=== PATIENT | male | born 1945 | race Caucasian/White ===

== ENCOUNTER 2018-08-29 22:57 | Inpatient (IN) | payer MEDICARE, OTHER ==
[~2018-08-29] VITALS: Ht 177.8 cm; Wt 68.0 kg
[2018-08-29] MEDS ORDERED: QUET25TA PO (23:42)
[2018-08-29] MEDS ORDERED: LISI-603 PO (23:42)
[2018-08-29] MEDS ORDERED: MAGN400O6 PO (23:42)
[2018-08-29] MEDS ORDERED: PANT40TA2 PO (23:42)
[2018-08-29] MEDS ORDERED: ZOFRAN (23:42)
[2018-08-29] MEDS ORDERED: ACET325C5 PO (23:42)
[2018-08-29] MEDS ORDERED: ALPR0.5T8 PO (23:42)
[2018-08-29] MEDS ORDERED: CARB-93 PO (23:42)
[2018-08-29] MEDS ORDERED: ATEN25TA PO (23:42)
[2018-08-29] MEDS ORDERED: OLAN2.5T3 PO (23:42)
[2018-08-30] MEDS ORDERED: MAGNESIUM HYDROXIDE 30 ML LIQUID UDC PO SCH (00:15)
--- NOTE | 2018-08-30 01:00 | NUR ---
AT APPROX 0015 ADMITTED 73 YEAR OLD MALE FOR[facility] TO [facility] MHU ON A 5150 FOR GD. PATIENT WAS FIRST ADMITTED TO [facility] FOR AMS, ONCE MEDICALLY CLEARED, HE WAS TRANSFERRED TO [facility] ER FOR ADMISSION TO MHU. PER 5150 HOLD, PATIENT HAS BEEN ACTING SEXUALLY INAPPROPRIATELY TOWARD OTHERS, ATTEMPTING TO WALK WITHOUT ASSISTANCE LEADING TO MULTIPLE FALLS, ATTEMPTING TO ELOPE, AGGRESSIVE AND COMBATIVE, UNABLE TO BE REDIRECTED. HOLD STARTED ON 08/29/18 AT 2100 AND WILL END ON 09/01/18 AT 2100. UPON ADMISSION PATIENT NOTED A/O X1, CONFUSED, DISORIENTED, UNABLE TO ANSWER ANY QUESTION. SKIN ASSESSMENT, FEW BRUISES NOTED IN LEFT FLANK, UPPER LEFT ARM, RIGHT MID ARM, ABRASIONS NOTED IN BOTH KNEES AND LOWER LEGS. FADED PINK RASH NOTED IN UPPER CHEST. PATIENT WAS DIRECTED TO HIS ROOM AND BED. HE IS NOTED CALM AT THIS TIME. PT IS UNDER THE CARE OF DR CASTAÑEDA. WILL CONTINUE TO MONITOR.
[2018-08-30] MEDS ORDERED: MAG HYDROX/AL HYDROX/SIMETH 30 ML LIQUID UDC PO PRN (01:30)
[2018-08-30] MEDS ORDERED: MAGNESIUM HYDROXIDE 30 ML LIQUID UDC PO PRN (01:30)
[2018-08-30] MEDS ORDERED: ZOLPIDEM 5 MG TABLET PO PRN (01:30)
[2018-08-30] MEDS ORDERED: ACETAMINOPHEN 325 MG TABLET PO PRN (01:30)
[2018-08-30 07:30] VITALS: BP 178/101
[2018-08-30] MEDS: LISINOPRIL 20 MG TABLET PO SCH ×2 (09:14→17:00)
[2018-08-30] MEDS: PANTOPRAZOLE SODIUM 40 MG TABLET.DR PO SCH (09:15)
[2018-08-30] MEDS: ATENOLOL 25 MG TABLET PO SCH (09:15)
[2018-08-30] MEDS: CARBIDOPA/LEVODOPA 25-100MG TABLET PO SCH ×2 (09:15→17:00)
[2018-08-30 16:00] VITALS: BP 98/56
[2018-08-30] MEDS: QUETIAPINE FUMARATE 25 MG TABLET PO SCH (17:00)
[2018-08-30 20:29] VITALS: BP 160/71
[2018-08-30] MEDS ORDERED: QUETIAPINE FUMARATE 25 MG TABLET PO SCH (21:00)
[2018-08-31] MEDS: LORAZEPAM 1 MG TABLET PO PRN ×2 (03:49→22:50)
[2018-08-31 07:30] VITALS: BP 126/70
[2018-08-31 08:01] LABS: ALANINE AMINOTRANSFERASE 8 U/L (16-63); ALKALINE PHOSPHATASE 65 U/L (50-136); ASPARTATE AMINOTRANSFERASE 10 U/L (15-37); BILIRUBIN,TOTAL 0.5 mg/dL (0.2-1.0); CARBON DIOXIDE 24 mmol/L (21-32); CHLORIDE 108 mmol/L (98-107); CREATININE 2.4 mg/dL (0.6-1.3); GLUCOSE 103 mg/dL (74-106); POTASSIUM 3.8 mmol/L (3.5-5.1); TOTAL PROTEIN, SERUM 7.2 g/dL (6.4-8.2); UREA NITROGEN, BLOOD 25 mg/dL (7-18)
[2018-08-31] MEDS: PANTOPRAZOLE SODIUM 40 MG TABLET.DR PO SCH (09:15)
[2018-08-31] MEDS: QUETIAPINE FUMARATE 25 MG TABLET PO SCH ×2 (09:15→17:29)
[2018-08-31] MEDS: CARBIDOPA/LEVODOPA 25-100MG TABLET PO SCH ×2 (09:15→17:29)
[2018-08-31] MEDS: LISINOPRIL 20 MG TABLET PO SCH ×2 (09:16→17:29)
[2018-08-31] MEDS: ATENOLOL 25 MG TABLET PO SCH (09:16)
--- NOTE | 2018-08-31 12:10 | NUR ---
Initial Discharge Plan: Patient is a 73 year old male who was previously living at home and then multiple SNFs and board & care's. Patient does not currently have stable placement and is unable to return to living independently. Patient will need new SNF placement. transmission worker has spoken with patient friend, Yannick Damon [ ], who is agreeable with patient going to a SNF. transmission worker will continue to collaborate with patient, patient friend, and MD on a safe and proper discharge.
[2018-08-31 16:00] VITALS: BP 129/77
[2018-08-31 20:23] VITALS: BP 149/80
[2018-08-31] MEDS ORDERED: QUETIAPINE FUMARATE 25 MG TABLET PO SCH (21:00)
[2018-08-31] MEDS: QUETIAPINE FUMARATE 100 MG TABLET PO SCH (21:02)
[2018-09-01] MEDS: LORAZEPAM 1 MG TABLET PO PRN ×4 (05:05→21:17)
[2018-09-01 07:30] VITALS: BP 96/47
[2018-09-01] MEDS: LISINOPRIL 20 MG TABLET PO SCH (09:00)
[2018-09-01] MEDS: ATENOLOL 25 MG TABLET PO SCH (09:00)
[2018-09-01] MEDS: PANTOPRAZOLE SODIUM 40 MG TABLET.DR PO SCH (09:01)
[2018-09-01] MEDS: QUETIAPINE FUMARATE 25 MG TABLET PO SCH ×2 (09:01→17:12)
[2018-09-01] MEDS: CARBIDOPA/LEVODOPA 25-100MG TABLET PO SCH ×2 (09:20→17:12)
[2018-09-01 15:25] VITALS: BP 131/76
--- NOTE | 2018-09-01 17:46 | NUR ---
GPS: RECEIVED PATIENT ON HIS GERICHAIR, ASLEEP, NO SIGN OF ANY DISTRESS, PATIENT CONFUSED AND DISORIENTED, ABLE TO EAT HIS MEAL WITH ASSISTANCE, PATIENT IS TOTAL CARE, WILL CONTINUE MONITOR
--- NOTE | 2018-09-01 20:10 | NUR ---
GPS: PATIENT CONFUSED AND DISORIENTED. ATTEMPT TO HIT STAFF. GETING OUT OF BED. AGRESSIVE BEHAVIOR. ATIVAN 1 MG PO PRN GIVEN.
--- NOTE | 2018-09-01 21:10 | NUR ---
GPS: PATIENT IS CALM NOW. PRN EFFECTIVE.
[2018-09-01] MEDS: QUETIAPINE FUMARATE 100 MG TABLET PO SCH (21:18)
[2018-09-01 21:50] VITALS: BP 113/68
--- NOTE | 2018-09-02 06:40 | NUR ---
GPS: Remain uncooperative with care.confused and disoriented. assisted with shower. slept 4:5 hrs through the night. resting in bed comfortably. continue plan of care.
[2018-09-02 07:30] VITALS: BP 108/58
[2018-09-02 07:48] LABS: BASOPHILS % (AUTO) 0.7 % (0.0-2.0); EOSINOPHILS # (AUTO) 0.2 K/uL (0.0-0.7); EOSINOPHILS % (AUTO) 2.5 % (0.0-7.0); HEMATOCRIT 43.4 % (36.7-47.1); HEMOGLOBIN 14.5 g/dL (12.5-16.3); LYMPHOCYTES # (AUTO) 0.7 K/uL (20.0-40.0); LYMPHOCYTES % (AUTO) 10.8 % (20.5-51.5); MEAN CORPUSCULAR HEMOGLOBIN 29.4 uug (23.8-33.4); MEAN CORPUSCULAR HGB CONC 33 g/dL (32.5-36.3); MEAN CORPUSCULAR VOLUME 88.2 fL (73.0-96.2); MONOCYTES # (AUTO) 0.5 K/uL (2.0-10.0); MONOCYTES % (AUTO) 8.1 % (0.0-11.0); NEUTROPHILS # (AUTO) 5.1 K/uL (1.8-8.9); NEUTROPHILS % (AUTO) 77.9 % (38.5-71.5); PLATELET COUNT (AUTO) 155 K/uL (152-348); RED BLOOD CELL COUNT(AUTO) 4.92 MIL/uL (4.06-5.63); WHITE BLOOD COUNT (AUTO) 6.6 K/uL (3.6-10.2)
[2018-09-02 08:18] LABS: THYROID STIMULATING HORMONE 0.551 mIU/mL (0.358-3.740)
[2018-09-02] MEDS: PANTOPRAZOLE SODIUM 40 MG TABLET.DR PO SCH (08:47)
[2018-09-02] MEDS: CARBIDOPA/LEVODOPA 25-100MG TABLET PO SCH ×2 (08:47→18:25)
[2018-09-02] MEDS: QUETIAPINE FUMARATE 25 MG TABLET PO SCH ×2 (08:48→18:25)
[2018-09-02] MEDS: LISINOPRIL 20 MG TABLET PO SCH (08:50)
[2018-09-02] MEDS: ATENOLOL 25 MG TABLET PO SCH (08:51)
[2018-09-02 08:55] LABS: ALANINE AMINOTRANSFERASE 14 U/L (16-63); ALKALINE PHOSPHATASE 70 U/L (50-136); ASPARTATE AMINOTRANSFERASE 14 U/L (15-37); CARBON DIOXIDE 28 mmol/L (21-32); CHLORIDE 107 mmol/L (98-107); CREATINE KINASE, TOTAL 101 U/L (39-308); CREATININE 1.2 mg/dL (0.6-1.3); GLUCOSE 88 mg/dL (74-106); MAGNESIUM 1.8 mg/dL (1.8-2.4); PHOSPHOROUS 2.7 mg/dL (2.5-4.9); POTASSIUM 3.7 mmol/L (3.5-5.1); TOTAL PROTEIN, SERUM 7.6 g/dL (6.4-8.2); UREA NITROGEN, BLOOD 38 mg/dL (7-18)
[2018-09-02 09:08] LABS: BILIRUBIN,TOTAL 0.6 mg/dL (0.2-1.0)
[2018-09-02 16:00] VITALS: BP 156/72
[2018-09-02 20:15] VITALS: BP_SYST 129; BP_SYST 97; BP_DIAS 66; BP_DIAS 76
[2018-09-02] MEDS: QUETIAPINE FUMARATE 100 MG TABLET PO SCH (20:41)
[2018-09-02] MEDS: Z GUARD REMEDY PASTE 57 GM TUBE TOP SCH (22:34)
[2018-09-03 07:30] VITALS: BP 136/82
[2018-09-03] MEDS: PANTOPRAZOLE SODIUM 40 MG TABLET.DR PO SCH (08:29)
[2018-09-03] MEDS: CARBIDOPA/LEVODOPA 25-100MG TABLET PO SCH ×2 (08:29→18:01)
[2018-09-03] MEDS: QUETIAPINE FUMARATE 25 MG TABLET PO SCH ×3 (08:29→18:01)
[2018-09-03] MEDS: ATENOLOL 25 MG TABLET PO SCH (08:29)
[2018-09-03] MEDS: LISINOPRIL 20 MG TABLET PO SCH (08:29)
[2018-09-03] MEDS: Z GUARD REMEDY PASTE 57 GM TUBE TOP SCH ×2 (08:30→20:35)
--- NOTE | 2018-09-03 09:04 | NUR ---
GPS/RN: Dr White adjusted Seroquel, per MD start new dose in afternoon not in am.
[2018-09-03] MEDS: LORAZEPAM 1 MG TABLET PO PRN (10:23)
--- NOTE | 2018-09-03 12:19 | NUR ---
Firearms Report: face worker completed and submitted a [employer] firearms report for a 5250 GD certification.
[2018-09-03 15:57] VITALS: BP 102/61
[2018-09-03 18:01] VITALS: BP 128/66
[2018-09-03 20:00] VITALS: BP 112/57
[2018-09-03] MEDS: QUETIAPINE FUMARATE 100 MG TABLET PO SCH (20:35)
--- NOTE | 2018-09-03 22:30 | NUR ---
received to care, up in white hospitalair, talkin gto self, appearing agitated and restless. appeared to calm down after taking his medications, and a snack. assisted to bed around 0. as of 2229, he appears to be asleep. no distress noted. will continue to monitor closely.
[2018-09-04 07:06] LABS: A/G RATIO 0.9 (0.7-1.7); ALBUMIN 3.4 g/dL (2.9-4.4); ALPHA-1-GLOBULIN 0.3 g/dL (0.0-0.4); BETA GLOBULIN 1.2 g/dL (0.7-1.3); GAMMA GLOBULIN 1.1 g/dL (0.4-1.8); GLOBULIN, TOTAL 3.7 g/dL (2.2-3.9); M-SPIKE Not Observed g/dL (Not Observed)
[2018-09-04 07:30] VITALS: BP 114/56
[2018-09-04 07:30] LABS: BASOPHILS % (AUTO) 0.8 % (0.0-2.0); EOSINOPHILS # (AUTO) 0.2 K/uL (0.0-0.7); EOSINOPHILS % (AUTO) 3.7 % (0.0-7.0); HEMATOCRIT 42.4 % (36.7-47.1); HEMOGLOBIN 14.2 g/dL (12.5-16.3); LYMPHOCYTES # (AUTO) 0.9 K/uL (20.0-40.0); LYMPHOCYTES % (AUTO) 15.7 % (20.5-51.5); MEAN CORPUSCULAR HEMOGLOBIN 29.4 uug (23.8-33.4); MEAN CORPUSCULAR HGB CONC 33 g/dL (32.5-36.3); MEAN CORPUSCULAR VOLUME 87.9 fL (73.0-96.2); MONOCYTES # (AUTO) 0.5 K/uL (2.0-10.0); MONOCYTES % (AUTO) 9.2 % (0.0-11.0); NEUTROPHILS % (AUTO) 70.6 % (38.5-71.5); PLATELET COUNT (AUTO) 156 K/uL (152-348); RED BLOOD CELL COUNT(AUTO) 4.82 MIL/uL (4.06-5.63); WHITE BLOOD COUNT (AUTO) 5.7 K/uL (3.6-10.2)
[2018-09-04] MEDS: LISINOPRIL 20 MG TABLET PO SCH (08:33)
[2018-09-04] MEDS: ATENOLOL 25 MG TABLET PO SCH (08:34)
[2018-09-04] MEDS: PANTOPRAZOLE SODIUM 40 MG TABLET.DR PO SCH (08:34)
[2018-09-04] MEDS: QUETIAPINE FUMARATE 25 MG TABLET PO SCH ×2 (08:34→16:47)
[2018-09-04] MEDS: Z GUARD REMEDY PASTE 57 GM TUBE TOP SCH ×2 (08:35→20:12)
[2018-09-04] MEDS: CARBIDOPA/LEVODOPA 25-100MG TABLET PO SCH ×2 (08:36→16:47)
[2018-09-04 08:48] LABS: ALANINE AMINOTRANSFERASE 20 U/L (16-63); ALKALINE PHOSPHATASE 69 U/L (50-136); ASPARTATE AMINOTRANSFERASE 19 U/L (15-37); BILIRUBIN,TOTAL 0.5 mg/dL (0.2-1.0); CARBON DIOXIDE 30 mmol/L (21-32); CHLORIDE 110 mmol/L (98-107); CREATININE 1.6 mg/dL (0.6-1.3); GLUCOSE 107 mg/dL (74-106); MAGNESIUM 1.9 mg/dL (1.8-2.4); PHOSPHOROUS 3.3 mg/dL (2.5-4.9); POTASSIUM 3.7 mmol/L (3.5-5.1); TOTAL PROTEIN, SERUM 7.4 g/dL (6.4-8.2); UREA NITROGEN, BLOOD 51 mg/dL (7-18)
[2018-09-04] MEDS: LORAZEPAM 1 MG TABLET PO PRN (11:42)
[2018-09-04 15:45] VITALS: BP 117/49
--- NOTE | 2018-09-04 16:44 | NUR ---
Discharge planning: cattle alley worker faxed SNF inquiries to the following facilities: [facility] [[id number] [place] [address]; ] [facility] [[address] [place] [address]; ] cattle alley worker awaiting call back with acceptance status and will follow-up as needed. Addendum: 09/05/18 at 1609 by SADAF WADE Patient has been accepted to [facility].
--- NOTE | 2018-09-04 18:20 | NUR ---
GPS: RECEIVED PATIENT ON CHAIR, ALERT ORIENTED X1, PATIENT COMPLIANT WITH MEDICATION, DENIES PAIN, IN DISTRESS AT THE MOMENT , WILL CONTINUE MONITOR
[2018-09-04 20:09] VITALS: BP 91/51
[2018-09-04] MEDS: QUETIAPINE FUMARATE 100 MG TABLET PO SCH ×2 (20:11→23:43)
--- NOTE | 2018-09-04 22:00 | NUR ---
received to care, up in lori chair, appering slightly restless. b/p is 91/51, so seroquel was held. po fluids encouraged. pt is currently asleep in lori chair at nurses station for safety.
--- NOTE | 2018-09-04 23:45 | NUR ---
pt is now awake, and restless. b/p is 140/88. bedtime dose of seroquel was given, along with more fluids.
[2018-09-04 23:46] VITALS: BP 140/88
--- NOTE | 2018-09-05 06:00 | NUR ---
slept 5.5 hours. continues to sleep. no distress noted.
[2018-09-05 07:30] VITALS: BP 130/48
[2018-09-05 07:50] LABS: BASOPHILS % (AUTO) 0.5 % (0.0-2.0); EOSINOPHILS # (AUTO) 0.2 K/uL (0.0-0.7); EOSINOPHILS % (AUTO) 4.5 % (0.0-7.0); HEMATOCRIT 41.1 % (36.7-47.1); HEMOGLOBIN 13.5 g/dL (12.5-16.3); LYMPHOCYTES % (AUTO) 19.5 % (20.5-51.5); MEAN CORPUSCULAR HEMOGLOBIN 29.1 uug (23.8-33.4); MEAN CORPUSCULAR HGB CONC 33 g/dL (32.5-36.3); MEAN CORPUSCULAR VOLUME 88.4 fL (73.0-96.2); MONOCYTES # (AUTO) 0.6 K/uL (2.0-10.0); NEUTROPHILS # (AUTO) 3.3 K/uL (1.8-8.9); NEUTROPHILS % (AUTO) 63.5 % (38.5-71.5); PLATELET COUNT (AUTO) 122 K/uL (152-348); RED BLOOD CELL COUNT(AUTO) 4.65 MIL/uL (4.06-5.63); WHITE BLOOD COUNT (AUTO) 5.3 K/uL (3.6-10.2)
[2018-09-05 07:57] LABS: ALANINE AMINOTRANSFERASE 20 U/L (16-63); ALKALINE PHOSPHATASE 75 U/L (50-136); ASPARTATE AMINOTRANSFERASE 18 U/L (15-37); BILIRUBIN,TOTAL 0.6 mg/dL (0.2-1.0); CARBON DIOXIDE 30 mmol/L (21-32); CHLORIDE 110 mmol/L (98-107); CREATININE 1.2 mg/dL (0.6-1.3); GLUCOSE 92 mg/dL (74-106); MAGNESIUM 1.9 mg/dL (1.8-2.4); PHOSPHOROUS 2.8 mg/dL (2.5-4.9); POTASSIUM 3.5 mmol/L (3.5-5.1); TOTAL PROTEIN, SERUM 7.3 g/dL (6.4-8.2); UREA NITROGEN, BLOOD 53 mg/dL (7-18)
[2018-09-05] MEDS: ATENOLOL 25 MG TABLET PO SCH (09:20)
[2018-09-05] MEDS: PANTOPRAZOLE SODIUM 40 MG TABLET.DR PO SCH (09:20)
[2018-09-05] MEDS: QUETIAPINE FUMARATE 25 MG TABLET PO SCH ×2 (09:20→17:56)
[2018-09-05] MEDS: CARBIDOPA/LEVODOPA 25-100MG TABLET PO SCH ×2 (09:20→17:56)
[2018-09-05] MEDS: Z GUARD REMEDY PASTE 57 GM TUBE TOP SCH ×2 (09:21→21:36)
[2018-09-05] MEDS: busPIRone 5 MG TABLET PO SCH ×3 (09:38→17:56)
[2018-09-05 16:00] VITALS: BP 118/67
[2018-09-05 19:54] VITALS: BP 95/46
[2018-09-05 21:42] VITALS: BP 149/71
[2018-09-05] MEDS: QUETIAPINE FUMARATE 100 MG TABLET PO SCH (21:49)
--- NOTE | 2018-09-05 23:30 | NUR ---
received to care, at 1900, restless, attempting to climb out of bed. he was placed in the lori chair for safety, and kept at nurses station, for closer monitoring. his b/p initially was 96/46, so his bedtime dose of seroquel was held. PO fluids, (150 ml apple juice, 150 ml of water), as well as a pudding was given. by 2144, b/p was up to 149/71, so he was given the seroquel, at 2148. as of 2329, he appears to be calmer. he was assisted to bed earlier, but tried to climb out again. currently sleeping in lori chair for safety, at nurses station. no distress noted. will continue to monitor closely.
--- NOTE | 2018-09-06 06:00 | NUR ---
slept 7.0 hours. continues to sleep. no distress noted.
[2018-09-06 07:30] VITALS: BP 120/69
[2018-09-06] MEDS: busPIRone 5 MG TABLET PO SCH ×3 (08:20→18:19)
[2018-09-06] MEDS: PANTOPRAZOLE SODIUM 40 MG TABLET.DR PO SCH (08:21)
[2018-09-06] MEDS: CARBIDOPA/LEVODOPA 25-100MG TABLET PO SCH ×2 (08:21→18:19)
[2018-09-06] MEDS: ATENOLOL 25 MG TABLET PO SCH (08:21)
[2018-09-06] MEDS: Z GUARD REMEDY PASTE 57 GM TUBE TOP SCH ×2 (08:21→20:24)
[2018-09-06] MEDS: QUETIAPINE FUMARATE 25 MG TABLET PO SCH ×2 (08:21→18:19)
--- NOTE | 2018-09-06 14:39 | NUR ---
Gps/Pipe Organ Tuner And Repairer- Kept up on his lori-chair , monitored closely for safety. Noted pt. preferred to drink ensure, instead of his main meals, tried to assist patient with meals, needed prompting and encouragement to eat. Bladder incontinence, kept clean and dry, z-guard to scrotal redness.
[2018-09-06 19:52] VITALS: BP 113/63
[2018-09-06] MEDS: QUETIAPINE FUMARATE 100 MG TABLET PO SCH (20:24)
[2018-09-06] MEDS: LORAZEPAM 1 MG TABLET PO PRN (23:16)
--- NOTE | 2018-09-06 23:16 | NUR ---
nsg: patient noted agitated. ativan 1 mg po given.
--- NOTE | 2018-09-07 00:17 | NUR ---
NSG: PATIENT IS CALM NOW. ASSISTED IN BED. RESTING IN BED COMFORTABLY.PRN EFFECTIVE FOR ANXIETY.
--- NOTE | 2018-09-07 05:53 | NUR ---
Remain confused and disoriented. assisted with adl's. slept 8 hrs through the night. continue monitoring for safety.
[2018-09-07 07:30] VITALS: BP 110/65
[2018-09-07 07:35] LABS: CARBON DIOXIDE 35 mmol/L (21-32); CHLORIDE 109 mmol/L (98-107); GLUCOSE 97 mg/dL (74-106); POTASSIUM 4.1 mmol/L (3.5-5.1); UREA NITROGEN, BLOOD 45 mg/dL (7-18)
--- NOTE | 2018-09-07 08:49 | NUR ---
DC NOTE: Patient will be discharged to [facility] [[address], [place] [address]; ] and transportation will be provided by ambulance at 1:00pm. Please arrange ambulance transportation for this patient. Acceptance to facility has been confirmed by Tika Adames, admissions salesperson used cars, who states they are ready to accept the patient today. Patient is AxOx1, denies suicidal ideations, and is agreeable with discharge plans. reclamation worker has called and spoken with patient ex-, Angelina Chris [[phone]], who is aware and agreeable with discharge plans. Patient will be followed-up by Dr. White (psychiatrist) and Dr. Fritz (final tester) at the facility. reclamation worker has provided patient with a mental health resources including [facility] Crisis Line [ ], Lydia Singh [ ], and National Suicide Prevention Lifeline [ ]. reclamation worker has also provided patient ex-, nAgelina, with Parkinson's Resources including [employer] [https://www.[employer].org/ ; ], [employer] [https://caregiveraction.org/], and a list of local Parkinson's support groups for caregivers and loved ones. All resources have been explained to patient and Angelina and placed in patient discharge packet.
[2018-09-07] MEDS: PANTOPRAZOLE SODIUM 40 MG TABLET.DR PO SCH (09:09)
[2018-09-07] MEDS: QUETIAPINE FUMARATE 25 MG TABLET PO SCH (09:09)
[2018-09-07] MEDS: busPIRone 5 MG TABLET PO SCH ×2 (09:09→13:22)
[2018-09-07 09:10] VITALS: BP 110/55
[2018-09-07] MEDS: ATENOLOL 25 MG TABLET PO SCH (09:10)
[2018-09-07] MEDS: Z GUARD REMEDY PASTE 57 GM TUBE TOP SCH (09:10)
[2018-09-07] MEDS: CARBIDOPA/LEVODOPA 25-100MG TABLET PO SCH (09:27)
--- NOTE | 2018-09-07 12:00 | NUR ---
Gps/Assistant Controller- Called [facility],report was given to Ramiro Erickson. Patient noted came in with no belongings. sack department supervisor time was arranged for 1245 via ambulance.
--- NOTE | 2018-09-07 13:30 | NUR ---
Gps/[employer] Clerk- Discharged to [facility] via ambulance ,in no sign of any distress. Patient has no belongings noted.
== END 2018-09-07 13:30 | DRG 885 ==
LOC: ER 23:00 → GPS 23:01
PROVIDERS: ADMIT Psychiatry & Neurology Psychiatry; ATTEND Internal Medicine
DX: F29 Unspecified psychosis not due to a substance or known physiological condition (principal); N18.9 Chronic kidney disease, unspecified; N17.0 Acute kidney failure with tubular necrosis; F02.81 Dementia in other diseases classified elsewhere, unspecified severity, with behavioral disturbance; D68.59 Other primary thrombophilia; G20 Parkinson's disease; Z79.899 Other long term (current) drug therapy; K21.9 Gastro-esophageal reflux disease without esophagitis; Z74.09 Other reduced mobility; D69.6 Thrombocytopenia, unspecified; I12.9 Hypertensive chronic kidney disease with stage 1 through stage 4 chronic kidney disease, or unspecified chronic kidney disease; T46.4X5A Adverse effect of angiotensin-converting-enzyme inhibitors, initial encounter; Y92.049 Unspecified place in boarding-house as the place of occurrence of the external cause; E78.1 Pure hyperglyceridemia; M19.90 Unspecified osteoarthritis, unspecified site
CPT/HCPCS: 36415; 76770; 83735; 83970; 84100; 84155; 84165; 84443; 85025; 93005; 97110; 97116; 97530; A4663